=== PATIENT | female | born 1975 | race Caucasian/White ===

== ENCOUNTER 2016-07-11 13:00 | Emergency (ER) | payer OTHER ==
[~2016-07-11] VITALS: Ht 172.7 cm; Wt 90.9 kg
[~2016-07-11 13:00] MED LIST: DOCU-41 PO; IBUP-1827 PO
[2016-07-11 13:08] VITALS: BP 110/75; PULSE 66; RESP 16; O2SAT 96
--- NOTE | 2016-07-11 14:20 | ED.REPORT ---
HPI-General Illness Date of Service Jul 11, 2016 ED Provider: Kary Mora History of Present Illness: needle stick around 1215 today on left thumb. Had just injected lidocaine for IV start and was pushing cap closed on needle and thumb slipped and hit needle. needle was 27 or 30 gauge. minimal depth source patient is renato parikh, labs are being drawn. primary care is [facility]. tdap in 02/26 has been vacinated for hep b. works here as a nurseoff shift at [employer], washed for 30 seconds today. Nursing Notes Stated Complaint: NEEDLE STICK Chief Complaint: Post Exposure Body Fluids Nursing Notes Reviewed: Yes Allergies: Coded Allergies: neomycin (Verified Allergy, Mild, RASH, 07/11/16) Uncoded Allergies: Neomycin (Allergy, Mild, RASH, 08/23/03) Scheduled Docusate Sodium (Colace) 100 Mg Capsule 100 MG PO DAILY Scheduled PRN Ibuprofen (Ibuprofen) 600 Mg Tablet 600 MG PO Q6H PRN PRN For Mild Pain General Time Seen by MD: 14:18 Chief Complaint Other (needle stick) Hx Obtained From: Patient Sudden in Onset?: Yes Onset Occurred: 5 - 8 hours ago Symptom Duration: Since onset Severity: Current: No pain currently Past Medical History Past Medical History Denies: Asthma, Diabetes mellitus Past Surgical History denies Smoking History Never Smoker Social History Is nursing child 07/11/2016 Alcohol Use: "Social" Drug Use: Denies drug use Other Social History: 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 [employer] Ambulatory Status Independent Review of Systems Full Review of Systems Constitutional: Denies: Chills, Fatigue, Fever Respiratory: Denies: Dyspnea on exertion Cardiovascular: Denies: Chest pain GI: Denies: Abdominal pain Allergy / Immune: Denies: Allergic reaction Psychiatric: Denies: Agitation Physical Exam Vital Signs Vital Signs Date Time Temp Pulse Resp B/P Pulse Ox O2 Delivery O2 Flow Rate FiO2 07/11/16 13:08 36.2 66 16 110/75 96 Room Air Initial VS: Reviewed, Vital signs normal General/Constitutional: Well-developed, Well-nourished Head / Eyes: Atraumatic, Normocephalic, PERRL ENT: Mucous membranes moist, Conjunctiva normal, No scleral icterus Neck: Supple, Non-tender, Full range of motion Respiratory: Breath sounds normal, Clear to auscultation, No respiratory distress Cardiovascular: Regular rate & rhythm, Heart sounds normal, Intact distal pulses Abdomen / GI: Soft, Non-tender, No guarding, No rebound, No distention Back: No CVA tenderness Lymphatic: No lymphadenopathy Extremities: Vascular intact, Neuro intact, No swelling, No tenderness Skin: Warm, Dry, No cyanosis Neurologic: Alert, Oriented, Nonfocal Psychiatric: Mood/affect normal, Behavior normal, Normal thought content General/Constitutional: Awake, Alert, No acute distress, Well appearing, Well developed very small puncture wound visisble on pad of left thumb, no active bleeding ENT: Atraumatic, Airway patent, Mucous membranes moist Respiratory / Chest: Atraumatic, Breath sounds NL, Breath sounds = bilat Cardiovascular: Heart rate NL, Regular rhythm, Heart sounds NL, No gallop Interpretation & Diagnostics Lab Results Interpretation Test 07/11/16 14:45 Re-Eval/Medical Decision Med Decision/Clinical Course discussed with patient risk of transmission is low. Labs drawn and pending. To follow with employee health Discharge & Departure Primary Impression: Needle stick injury Disposition: Home Patient Instructions: Needle Stick Injuries (ED) Additional Instructions: You are up to date on Tdap. The needle stick injury is low risk. You washed the site for 10 minutes. The source is being tested. Follow up is with employee health. Please call them today or tomorrow for follow up. Referrals: Devan Niño MD (PCP) (Family) EDSupervising Provider for APC: Remy Srivastava MD copies to: Devan Niño MD, Sue ARNP Jul 11, 2016 14:20
== END 2016-07-11 14:36 | disposition home or self-care (01) ==
LOC: SED 13:00
DX: S61.002A Unspecified open wound of left thumb without damage to nail, initial encounter (principal); W46.0XXA Contact with hypodermic needle, initial encounter; Y93.89 Activity, other specified; Y92.238 Other place in hospital as the place of occurrence of the external cause; Y99.0 Civilian activity done for income or pay; Z88.1 Allergy status to other antibiotic agents
CPT/HCPCS: 36415; 86706; 99283; G0433